=== PATIENT | male | born 1935 | race Caucasian/White ===

== ENCOUNTER → 2017-05-07 | Day surgery (SDC) | payer OTHER ==
[~2017-05-07] MED LIST: ALLOPURINOL 100 MG TAB PO SCH; ALLOPURINOL 200 MG PO SCH; ASPIRIN 81 MG CHEWABLE TAB PO SCH; CYANO/VITAMIN B12 1000 MCG/ML VIAL IM SCH; CYANOCOBALAMIN 1000 MCG IM SCH; LIDOCAINE 2% JELLY 20 ML (UROJECT) ONE; LISINOPRIL 10 MG PO SCH; LISINOPRIL 10 MG TAB PO SCH; LISINOPRIL 5 MG PO SCH; LISINOPRIL 5 MG TAB PO SCH; LR 1,000 ML IV ONE; METOPROLOL TARTRATE 5 MG/5 ML INJ ONE; METOPROLOL TARTRATE 50 MG TAB PO SCH; NON-FORMULARY NEW DRUG (Aspirin [Aspirin 81mg (*)] 81 MG) PO SCH; NON-FORMULARY NEW DRUG (Simvastatin [Zocor] 10 MG) PO SCH; PRAVASTATIN SODIUM 20 MG TAB PO SCH; ceFAZolin 2 GM/SWFI 2 GM/20 ML SYR IVP ONE
--- NOTE | 2017-05-07 07:44 | GHP ---
[f rep st] PREOP HISTORY AND PHYSICAL DATE OF ADMISSION: 05/07/2017 ADMISSION DIAGNOSIS: Benign prostatic hypertrophy with urinary retention. HISTORY OF PRESENT ILLNESS: This is an 81-year-old gentleman who was originally referred by Bethany serrano M.D., for evaluation of gross hematuria. On assessment and evaluation, he has had inflammat ory BPH, is admitted for transurethral resection of the prostate. He has had a TURP in the past, and at the present time, he has an AUA score total of 8 and a quality of life score of 4. REVIEW OF SYSTEMS: Negative cardiac, respiratory, GI, and endocrine. PHYSICAL EXAM: VITAL SIGNS: Stable. CHEST: Clear. HEART: Regular rate and rhythm. ABDOMEN: No rmal. No organomegaly, rebound, or guarding. LOWER EXTREMITIES: Normal. PLAN: At the present time, he is admitted for transurethral resection of the prostate. Options were discussed. Written and verbal consent were obtained. He is admitted for the above procedure. /[id number]/MODL
[2017-05-07 08:08] LABS: PLATELET COUNT 104 10^3/uL (150-400)
--- NOTE | 2017-05-07 08:09 | CPEKG ---
Heart Rate: 126 RR Interval: 476 QRSD Interval: 90 QT Interval: 308 QTC Interval: 446 QRS [place]: 20 T Wave [place]: -14 EKG Severity - ABNORMAL ECG - EKG Impression: ATRIAL FIBRILLATION WITH POOR RATE CONTROL EKG Impression: BORDERLINE T ABNORMALITIES, INFERIOR LEADS Electronically Signed By: Rodo Chen 07-May-2017 10:16:24
[2017-05-07 08:14] VITALS: TEMP 97.9; O2SAT 95
--- NOTE | 2017-05-07 08:16 | PDHPUP ---
History & Physical Update H&P update statement: This history and physical update is based on an assessment of the patient which was completed after admission or registration (within 24 hours), but prior to the surgery/procedure. H&P update: H&P reviewed & patient examined, no change in patient's condition since H&P completed
[2017-05-07] MEDS: METOPROLOL TARTRATE 5 MG/5 ML INJ IVP SCH ×3 (09:23→09:42)
--- NOTE | 2017-05-07 10:04 | PDANEPAE ---
ANE History of Present Illness Hematuria ANE Past Medical History - Cardiovascular History Hx Hypertension: Yes Hx Arrhythmias: No Hx Chest Pain: No Hx Coronary Artery / Peripheral Vascular Disease: Yes Hx CHF / Valvular Disease: No Hx Palpitations: No - Pulmonary History Hx COPD: No Hx Asthma/Reactive Airway Disease: No Hx Recent Upper Respiratory Infection: No Hx Oxygen in Use at Home: No Hx Sleep Apnea: No Sleep Apnea Screening Result - Last Documented: Positive - Neurologic History Hx Cerebrovascular Accident: No Hx Seizures: No Hx Dementia: No - Endocrine History Hx Diabetes: No - Renal History Hx Renal Disorders: No - Liver History Hx Hepatic Disorders: No - Neurological & Psychiatric Hx Hx Neurological and Psychiatric Disorders: No - Cancer History Hx Cancer: No - Congenital Disorder History Hx Congenital Disorders: No - GI History Hx Gastrointestinal Disorders: No - Other Health History Other Health History: none - Chronic Pain History Chronic Pain: No - Surgical History Prior Surgeries: right hand surgery. turp 1999. ankle right surgery ANE Review of Systems Review of Systems: - Exercise capacity METS (RN): 4 METS ANE Patient History - Allergies Allergies/Adverse Reactions: No Known Allergies Allergy (Verified 05/05/17 11:01) - Home Medications Home Medications: Allopurinol [Allopurinol 100 MG (*)] 200 mg PO DAILY18 05/05/17 [Last Taken Unknown] Aspirin [Aspirin 81mg (*)] 81 mg PO DAILY18 05/05/17 [Last Taken Unknown] Cyanocobalamin [Vitamin B12 1000MCG/ML (*)] 1,000 mcg IM Q30D 05/05/17 [Last Taken Unknown] Herbals/Supplements -Info Only 1 each PO DAILY 05/05/17 [Last Taken Unknown] Lisinopril [Zestril 5 mg (*)] 5 mg PO DAILY 05/05/17 [Last Taken Unknown] Lisinopril [Zestril 5 mg (*)] 10 mg PO DAILY18 05/05/17 [Last Taken Unknown] Simvastatin [Zocor] 10 mg PO DAILY18 05/05/17 [Last Taken Unknown] Tamsulosin HCl [Flomax 0.4 MG (*)] 0.4 mg PO DAILY18 05/05/17 [Last Taken Unknown] - NPO status NPO Since - Liquids (Date): 05/07/17 NPO Since - Liquids (Time): 06:00 NPO Since - Solids (Date): 05/06/17 NPO Since - Solids (Time): 21:00 - Smoking Hx Smoking Status: Former smoker - Family Anes Hx Family Hx Anesthesia Complications: none ANE Labs/Vital Signs - Labs Result Diagrams: 05/07/17 07:50 - Vital Signs Blood Pressure: 129/92 Heart Rate: 94 Respiratory Rate: 18 O2 Sat (%): 95 Height: 177.8 cm Weight: 90.718 kg ANE Anesthesia Plan Anesthesia Plan: general endotracheal anesthesia (Pt in a-fib with rate 160's. Cardiology consulted and recommended rate control and proceed, but logistics do not allow for procedure today. Will cancel and reschedule, possibly tomorrow. Cardiology ordering mediations.)
--- NOTE | 2017-05-07 10:39 | ECHO ---
[email or web address] [address] [address] Main: [phone] Fax: Transthoracic Echocardiogram Name: EDSON GARCIA MR#: [id number] Study Date: 05/07/2017 Study Time: 09:13 AM Date of : 1935 Age: 81 year(s) Height: 177.8 cm (70 in.) Weight: 77.11 kg (170 lb.) BSA: 1.95 m2 Gender: Male Examination: Echo Indication: pre-op; murmur Image Quality: Adequate Contrast: Requested by: Viktor Freeman BP: 131 mmHg/87 mmHg Heart Rate: Rhythm: Atrial fibrillation Indication: pre-op; murmur Procedure Staff Supervisor Pyrotechnic Loading: Joaquina Portillo [facility] Reading Physician: Suleiman Ocampo MD Requesting Provider: Conclusions: The patient was in atrial fibrillation with a rapid ventricular response at the time of the study . The left ventricle is normal in size with preserved LV systolic function. Visually the ejection fraction is estimated at 60-65% and calculated at 53% by Osborne's. The interventricular septum is "D" shaped during systole consistent with RV pressure overload. There are no regional wall motion abnormalities. The left atrium is severely dilated. The right atrium is tfwe-gl-jmpvxoqxea dilated. Right ventricular systolic function appears to be mildly reduced. There is mild aortic sclerosis with trivial aortic insufficiency. Mild mitral annular calcification is noted. There is nonspecific mitral leaflet thickening. There appears to be very mild prolapse of the posterior leaflet. This does, however, result in severe eccentric mitral regurgitation with an anteriorly directed jet. There is moderate to severe tricuspid regurgitation. The right ventricular systolic pressure is severely elevated at 71 mmHg. There is a small pericardial effusion. Measurements: Chambers Valvular Assessment AV/MV Valvular Assessment TV/PV Normal Normal Normal Name Value Range Name Value Range Name Value Range Ao Kelly (MM): 3.9 cm (2.2 cm-3.7 AV Vmax: 1.07 m/s (1 m/s-1.7 TR Vmax: 3.75 mm/s ( - ) cm) m/s) TR PGmax: 56 mmHg ( - ) IVSd (2D): 1.5 cm (0.6 cm-1.1 AV maxP mmHg ( - ) syst. PAP: 71 mmHg ( - ) cm) LVOT Vmax: 0.68 m/s (0.7 m/s-1.1 PV Vmax: 0.84 m/s (0.6 m/s-0.9 LVDd (2D): 4.7 cm (4.2 cm-5.9 m/s) m/s) cm) MV E Vmax: 1.06 m/s ( - ) PV PGmax: 3 mmHg ( - ) LVDs (2D): 3.2 cm (2.1 cm-4 cm) LVPWd (2D): 1.1 cm (0.6 cm-1 cm) LVEF (BP): 53 % (>=55 %) RVDd(2D): 4.0 cm (1.9 cm-3.8 cmmm) Patient: EDSON GARCIA Study Date: 05/07/2017 Page 1 of 2 09:13 AM Continued Measurements: Chambers Valvular Assessment AV/MV Valvular Assessment TV/PV Name Value Name Value Name Value LADs: 5.4 cm MR Vena Contracta: 0.8 cm CVP (est.): 15 mmHg LADs Lon.4 cm LA Area: 39.1 cm2 LA Volume: 140 ml LA Volume Index: 71.8 ml/m2 TAPSE: 1.3 cm RA Area: 23.0 cm2 Findings: Left Ventricle: Normal size left ventricle. Mild to moderate LVH. Low normal left ventricular systolic function. EF is 53 %. No regional wall motion abnormality. Unable to assess diastolic dysfunction. Flattened interventricular septum consistent with RV volume and/or pressure overload. Right Ventricle: Mildly dilated right ventricle. Mildly reduced RV function. Left Atrium: The left atrium is severely dilated. Right Atrium: The right atrium is moderately dilated. Mitral Valve: There is mild thickening of the mitral valve leaflets. No mitral stenosis is present. There is flow reversal in the pulmonary veins consistent with significant mitral regurgitation. Posterior mitral leaflet prolapse with severe anteriorly directed mitral regurgitation. Mild posterior mitral annular calcification. Aortic Valve: The aortic valve is tri-leaflet and functions normally. Aortic sclerosis is present. Trivial to mild aortic valve regurgitation. No aortic valve stenosis is present. Tricuspid Valve: The tricuspid valve is normal in appearance and function. Moderate to severe tricuspid valve regurgitation. Right ventricular systolic pressure measures 71mmHg. The pulmonary artery pressure is severely increased. Pulmonic Valve: Pulmonary valve not well visualized. Trivial pulmonic valve regurgitation. Aorta: Normal size aortic root measuring 3.9 cm. IVC: The IVC is dilated. Pericardium: Small pericardial effusion. (No Signature Object) Patient: EDSON GARCIA Study Date: 05/07/2017 Page 2 of 2 09:13 AM [id number]
--- NOTE | 2017-05-07 10:40 | GCON ---
[f rep st] CONSULTATION CARDIOLOGY CONSULTATION. DATE OF CONSULTATION: 05/07/2017 REQUESTING PHYSICIAN: Dr. Lane from Anesthesiology. INDICATION: Atrial fibrillation in a patient preop for planned prostate surgery. HISTORY OF PRESENT ILLNESS: The patient is 81 years old and typically receives his cardiovascular ca re in [place]. At the time of my visit with him, I had no available cardiac records. Per the patient , he has no history of structural, ischemic or arrhythmic heart disease. He is followed by Cardiolog y given his history of chest discomfort which led to a stress test back in the 80s. He was diagnosed ultimately only with hypertension and hyperlipidemia and has been managed as an outpatient since. Layton is last visit with his shank tapper was about a year ago. He states that he generally feels well. Layton luis has, however, experienced a decline in his exercise capacity. Previously, he had been able exercis e on his home treadmill up to 15-20 minutes a day. However, more recently, he has only been active, able to exercise for 5 or 10 minutes before he becomes exhausted. He has symptoms of dyspnea without chest discomfort and also has noted fatigue. There is no history of orthopnea or PND. He has never been told that he has had atrial fibrillation and has never been treated with systemic anticoagulatio n. He is here today for a planned TURP given his history of hematuria. On arrival here, he was hemo dynamically stable, however, was noted to be in rapid atrial fibrillation. His initial ECG done at 7 :29 this morning indicated atrial fibrillation with a resting heart rate of 129 beats per minute with no ischemic ST or T changes. When I saw him, he was resting comfortably. PAST MEDICAL HISTORY: Obtained per the patient. He states that he has history of hypertension, hype rlipidemia, and BPH. Additionally, has a history of gout and previous UTIs. PAST SURGICAL HISTORY: Significant for previous inguinal hernia repair. HOME MEDICATIONS: Include allopurinol, baby aspirin, calcium, B12, lisinopril 5 mg daily, simvastati n 10 mg daily and tamsulosin. ALLERGIES: None. FAMILY HISTORY: Negative for premature atherosclerosis. SOCIAL HISTORY: He is a previous smoker, although quit back in the 70s. He has 5 children. He is a . He drinks alcohol rarely. As stated above, he likes to exercise either by walking outside or walking on his treadmill, however, has experienced effort intolerance. REVIEW OF SYSTEMS: A full 10-point review of systems was performed and is otherwise negative. PHYSICAL EXAMINATION: VITAL SIGNS: His blood pressure is 129/92 with a palpable pulse of about 120 beats per minute. On telemetry, he has been in atrial fibrillation with heart rates between 110 and 170 beats per minute. He has been afebrile. His oxygen saturations are 95%. GENERAL: He is a healt hy elderly male in no acute distress. HEENT: Normocephalic, atraumatic. He has anicteric sclerae. Oropharynx unremarkable. Carotids 2+ bilaterally. He has no jugular venous distention. RESPIRATORY : He speaks in full sentences. He is resting comfortably. On auscultation, he has fine basilar rale s. CARDIAC: Precordial inspection unremarkable. His PMI is nondisplaced. On auscultation, he is t achycardic with an irregularly irregular rhythm. He has a 2/6 holosystolic murmur at the left sterna l border which radiates both down to the xiphoid process and over into the axilla. ABDOMEN: Soft an d nontender. There are normoactive bowel sounds. He has no masses or hepatosplenomegaly. EXTREMITI ES: Warm and dry and well perfused. He has no indication of edema. VASCULATURE: He has 2+ radial and dorsal pedal pulses. DATABASE: Electrocardiogram is as described above. A CBC was noted to be normal. IMPRESSION: Mr. Vail is 81 years old and presents now with what is presumably his first episode of atrial fibrillation. He does describe a several month history of effort intolerance and dyspnea on e xertion. His exam is consistent with severe mitral regurgitation. My suspicion is that he has prima ry functional valvular heart disease which may have led to underlying atrial fibrillation as a cause for his recent symptoms. He does not appear to be in overt congestive heart failure at the present t jasmin. His heart rates are poorly controlled. Presently, I think the best course of action would be t o take care of his prostate disease before we directly address his atrial arrhythmias and what is lik kwame significant underlying valvular heart disease. To address either of these conditions upfront wou ld require that we begin systemic anticoagulation, which, given his hematuria at the present time, is not an option. Therefore, I recommend that we try to rate control his heart rate with intravenous L opressor. If we can get this under control, I think he can go to the operating room. I would like h im to have an echocardiogram. I have also requested records from his previous shank tapper. Further recommendations will be made pending review of these studies and review of his previous records. /[id number]/MODL
[2017-05-07 11:12] VITALS: BP 108/72; PULSE 133
[2017-05-07 12:20] VITALS: RESP 19
== END | disposition home or self-care (01) ==
LOC: F1N 06:30 → UNDOADMIN 06:30 → FSGY 06:30 → EDSTATUS 08:30
PROVIDERS: ATTEND Specialist
DX: N40.1 Benign prostatic hyperplasia with lower urinary tract symptoms (principal); R35.1 Nocturia; R31.0 Gross hematuria; Z53.09 Procedure and treatment not carried out because of other contraindication; I48.91 Unspecified atrial fibrillation; I08.1 Rheumatic disorders of both mitral and tricuspid valves; I10 Essential (primary) hypertension; E78.5 Hyperlipidemia, unspecified; M10.9 Gout, unspecified; I25.10 Atherosclerotic heart disease of native coronary artery without angina pectoris; Z87.440 Personal history of urinary (tract) infections
CPT/HCPCS: J0690

== ENCOUNTER 2017-05-21 05:33 | Observation (INO) | payer OTHER ==
--- NOTE | 2017-05-20 15:13 | GHP ---
[f rep st] PREOP HISTORY AND PHYSICAL ADMISSION DIAGNOSES: BPH, urinary obstruction, gross hematuria. HISTORY OF PRESENT ILLNESS: This 81-year-old gentleman who presented from Bethany Guzman MD, for e valuation of hematuria, with bladder outlet obstruction and nocturia. He is admitted for a TURP. MEDICATIONS: On admission are allopurinol, aspirin, calcium, lisinopril, simvastatin, and tamsulosin . ALLERGIES: None. PAST MEDICAL HISTORY: Positive for gout, BPH, hematuria, heart disease, hypertension, and UTIs. He had a cystoscopy that noted he had a TUR defect with inflammatory regrowth causing the blood and the obstruction, and at the present time, he is admitted for TUR of that lesion. PHYSICAL EXAMINATION: VITAL SIGNS: Stable. CHEST: Clear. HEART: Regular rate and rhythm. ABDOM EN: Normal. No organomegaly, rebound or guarding. EXTREMITIES: Lower extremities are normal. ASSESSMENT/PLAN: He is admitted for the above procedure. /[id number]/MODL
[2017-05-21] MEDS ORDERED: LIDOCAINE 1% 2 ML INJ ID PRN (05:39)
[2017-05-21] MEDS ORDERED: LR 1,000 ML IV ONE ×2 (05:39→06:46)
--- NOTE | 2017-05-21 06:42 | PDANEPAE ---
ANE History of Present Illness 81 year old male for TURP. ANE Past Medical History - Cardiovascular History Hx Hypertension: Yes Hx Arrhythmias: Yes Hx Chest Pain: No Hx Coronary Artery / Peripheral Vascular Disease: Yes Hx CHF / Valvular Disease: No Hx Palpitations: No Cardiovascular History Comment: EKG showed Afib - Dr Ocampo at [facility] placed on Metoprolol. Patient also has his own virtual assistant for advertisers through [facility] - Dr. Lashay Ballard. He was recently started on Xarelto (started 05-14-17 and stopped it on 05-17-17) Also prescribed cardizem, but he has not yet started this medication. On arrival to Pre-op, patient in A.Fib with RVR with highest rate approx. 140bpm. This is not new. He has had A.Fib w/ RVR for some time. - Pulmonary History Hx COPD: No Hx Asthma/Reactive Airway Disease: No Hx Recent Upper Respiratory Infection: No Hx Oxygen in Use at Home: No Hx Sleep Apnea: No Sleep Apnea Screening Result - Last Documented: Positive - Neurologic History Hx Cerebrovascular Accident: No Hx Seizures: No Hx Dementia: No - Endocrine History Hx Diabetes: No Hypothyroid: No Hyperthyroid: No Obesity: no - Renal History Hx Renal Disorders: Yes Renal History Comment: enlarged prostate, nocturia x2-3 - Liver History Hx Hepatic Disorders: No - Neurological & Psychiatric Hx Hx Neurological and Psychiatric Disorders: No - Cancer History Hx Cancer: No - Congenital Disorder History Hx Congenital Disorders: No - GI History GERD: no Hx Gastrointestinal Disorders: No - Other Health History Other Health History: Can bruise more easily lately - Chronic Pain History Chronic Pain: No - Surgical History Prior Surgeries: right hand surgery. turp 1998. ankle right surgery. tonsillectomy ANE Review of Systems Review of systems is: negative Review of Systems: - Exercise capacity Exercise capacity: >=4 METS METS (RN): 4 METS ANE Patient History - Allergies Allergies/Adverse Reactions: No Known Allergies Allergy (Verified 05/05/17 11:01) - Home Medications Home medications: home medication list seen and reviewed Home Medications: Allopurinol [Allopurinol 100 MG (*)] 200 mg PO DAILY18 05/05/17 [Last Taken 18:00] Aspirin [Aspirin 81mg (*)] 81 mg PO DAILY18 05/05/17 [Last Taken 05/14/17] Cyanocobalamin [Vitamin B12 1000MCG/ML (*)] 1,000 mcg IM Q30D 05/05/17 [Last Taken 04/30/17] Herbals/Supplements -Info Only 1 each PO DAILY 05/05/17 [Last Taken 05/20/17 08: 00] Lisinopril [Zestril 5 mg (*)] 5 mg PO DAILY 05/05/17 [Last Taken 05/12/17] Lisinopril [Zestril 5 mg (*)] 10 mg PO DAILY18 05/05/17 [Last Taken Unknown] Simvastatin [Zocor] 10 mg PO DAILY18 05/05/17 [Last Taken 05/18/17] Tamsulosin HCl [Flomax 0.4 MG (*)] 0.4 mg PO DAILY18 05/05/17 [Last Taken ] Metoprolol Tartrate 05/12/17 [Last Taken Unknown] Cardizem 05/18/17 [Last Taken Unknown] Xarelto 05/18/17 [Last Taken 05/17/17 08:00] - NPO status NPO Status: no food or drink >8 hours NPO Since - Liquids (Date): 05/21/17 NPO Since - Liquids (Time): 21:00 NPO Since - Solids (Date): 05/20/17 NPO Since - Solids (Time): 19:00 - Anes Hx Anes Hx: no prior problems - Smoking Hx Smoking Status: Former smoker Marijuana use: No - Alcohol Use Alcohol Use: None - Family Anes Hx Family Anes Hx: neg - N/A Family Hx Anesthesia Complications: none ANE Labs/Vital Signs - Vital Signs Vital Signs: reviewed preoperatively; see RN documention for details Blood Pressure: 151/81 Heart Rate: 154 Respiratory Rate: 18 O2 Sat (%): 94 Height: 180.34 cm Weight: 90.718 kg ANE Physical Exam - Airway Neck exam: FROM Mallampati Score: Class 1 Mouth exam: dentures - Pulmonary Pulmonary: no respiratory distress - Cardiovascular Cardiovascular: no murmur, rub, or gallop, irregularly irregular, tachycardia - ASA Status ASA Status: III ANE Anesthesia Plan Anesthesia Plan: general endotracheal anesthesia Total IV Anesthesia: No
[2017-05-21] MEDS ORDERED: LIDOCAINE 2% JELLY 20 ML (UROJECT) ONE (07:03)
[2017-05-21] MEDS ORDERED: ceFAZolin 2 GM/SWFI 2 GM/20 ML SYR IVP ONE (07:06)
[2017-05-21] MEDS ORDERED: LIDOCAINE 2% 5 ML SDV ONE (07:13)
[2017-05-21] MEDS ORDERED: PROPOFOL 200 MG/20 ML VIAL ONE (07:13)
[2017-05-21] MEDS ORDERED: fentaNYL 100 MCG/2 ML INJ ONE (07:13)
[2017-05-21] MEDS ORDERED: ROCURONIUM 50 MG/5 ML VIAL ONE (07:13)
[2017-05-21] MEDS ORDERED: PHENYLEPHRINE HCL 100 MCG/ML SYR ONE (07:16)
[2017-05-21] MEDS ORDERED: OPIUM/BELLADONNA ALKALO SUPP PR PRN (08:31)
[2017-05-21] MEDS ORDERED: LR 500 ML IV PRN (08:31)
[2017-05-21] MEDS ORDERED: PHENYLEPHRINE HCL 100 MCG/ML SYR IVP PRN (08:31)
[2017-05-21] MEDS ORDERED: HYDROCODONE/APAP 5/325 TAB PO PRN (08:31)
[2017-05-21] MEDS ORDERED: NALOXONE HCL 0.4 MG/ML INJ IVP PRN (08:31)
[2017-05-21] MEDS ORDERED: fentaNYL 100 MCG/2 ML INJ IVP PRN (08:31)
[2017-05-21] MEDS ORDERED: ONDANSETRON 4 MG/2 ML VIAL IVP PRN ×2 (08:31→08:32)
[2017-05-21] MEDS ORDERED: LABETALOL HCL 5 MG/ML 20 ML MDV IVP PRN (08:31)
--- NOTE | 2017-05-21 08:31 | GOP ---
[f rep st] OPERATIVE REPORT DATE OF OPERATION: 05/21/2017 SURGEON: Viktor Freeman MD PREOPERATIVE DIAGNOSIS: Benign prostatic hypertrophy with hemorrhagic prostatitis. POSTOPERATIVE DIAGNOSIS: Benign prostatic hypertrophy with hemorrhagic prostatitis. PROCEDURE PERFORMED: Transurethral resection of the prostate. FINDINGS: SPECIMENS: Sent to pathology. ESTIMATED BLOOD LOSS: Minimal. DESCRIPTION OF PROCEDURE: After undergoing general anesthesia, prep and drape in normal sterile fash ion in the dorsal lithotomy position, the resectoscope was passed under direct vision into the bladde r. Bladder had no tumor, stones, foreign bodies, or diverticula. Ureteral orifices were in normal p osition. Began by taking down the left lateral lobe and left portion of the posterior lobe. Right lateral lob e and right portion of the posterior lobe resected. Hemostasis provided with electrocautery and a bu tton bipolar. At the end of the procedure, there was no bleeding. Ureteral orifices were preserved. Verumontanum preserved. External sphincter approximated at the midline symmetrically. Uro-Jet renetta shahbaz in the urethra. A 22 three-way catheter with a 60 cc balloon inflated, traction placed, irrigate d clear. He will be admitted for postoperative care. COMPLICATIONS: None. /[id number]/MODL
[2017-05-21] MEDS ORDERED: ACETAMINOPHEN 325 MG TAB PO PRN (08:32)
[2017-05-21] MEDS ORDERED: ZOLPIDEM TARTRATE 5 MG TAB PO PRN (08:32)
[2017-05-21] MEDS ORDERED: ONDANSETRON DISINTEGRATING 4 MG TAB PO PRN (08:32)
--- NOTE | 2017-05-21 08:37 | POSTOPPROG ---
Post Op Note Date of Operation: 05/21/17 Surgeon: Vitkor Freeman Anesthesia: GET(General Endotracheal) Pre-op Diagnosis: bph Procedure: turp Inf/Abcess present in the surg proc area at time of surgery?: No EBL: Minimal Drains: Other (sandoval) Specimen(s): sent--dictated
[2017-05-21] MEDS ORDERED: POTASSIUM Cl (KCl) 10 MEQ in D5W 1/2 NS 1,000 ML IV SCH (09:00)
[2017-05-21] MEDS ORDERED: NS 1,000 ML IV SCH (09:15)
[2017-05-21] MEDS ORDERED: NS 1,000 ML IV ONE (09:18)
[2017-05-21 09:48] LABS: PLATELET COUNT 128 10^3/uL (150-400)
[2017-05-21] MEDS ORDERED: DILTIAZEM 125 MG in D5W 125 ML IV SCH (12:15)
[2017-05-21] MEDS: DILTIAZEM CD 120 MG CAP PO SCH (12:34)
--- NOTE | 2017-05-21 17:04 | PDGENHP ---
History and Physical - Chief Complaint Acute fatigue - History of Present Illness Primary care provider: Dr. Martínez Primary stave jointer: Dr. Lashay Ballard HPI: 81-year-old male presenting with acute fatigue characterized as daytime somnolence with associated nocturia, shortness of breath and hematuria. The patient reports that he is experienced hematuria for the past several months which is constant during his urinary stream and it is associated with increased nocturia. He was seen as an outpatient by Dr. Freeman, and scheduled for a TURP. In addition, the patient reports that his shortness of breath was gradual onset approximately 1 month prior and would be exacerbated with ambulation. He otherwise denies any palpitations or chest pain. He denies any infectious symptoms. Perioperatively, the patient's systolic blood pressure went down to 60, and postoperatively his heart rate went up to 140. After receiving lactated Ringer's, his systolic blood pressure increased to 150, but his heart rate remained fast and telemetry demonstrated an atrial fibrillation rhythm. History Information - Allergies/Home Medication List Allergies/Adverse Reactions: No Known Allergies Allergy (Verified 05/05/17 11:01) Home Medications: Allopurinol [Allopurinol 100 MG (*)] 200 mg PO DAILY18 05/05/17 [Last Taken 18:00] Aspirin [Aspirin 81mg (*)] 81 mg PO DAILY18 05/05/17 [Last Taken 05/14/17] Cyanocobalamin [Vitamin B12 1000MCG/ML (*)] 1,000 mcg IM Q30D 05/05/17 [Last Taken 04/30/17] Herbals/Supplements -Info Only 1 each PO DAILY 05/05/17 [Last Taken 05/20/17 08: 00] Lisinopril [Zestril 5 mg (*)] 5 mg PO DAILY 05/05/17 [Last Taken 05/12/17] Lisinopril [Zestril 5 mg (*)] 10 mg PO DAILY18 05/05/17 [Last Taken Unknown] Simvastatin [Zocor] 10 mg PO DAILY18 05/05/17 [Last Taken 05/18/17] Tamsulosin HCl [Flomax 0.4 MG (*)] 0.4 mg PO DAILY18 05/05/17 [Last Taken ] Metoprolol Tartrate [Lopressor 50 mg (*)] 50 mg PO BID 05/12/17 [Last Taken Unknown] Diltiazem HCl [Cartia Xt] 120 mg PO DAILY 05/18/17 [Last Taken Unknown] Rivaroxaban [Xarelto 10mg (*)] 20 mg PO DAILY 05/18/17 [Last Taken 05/17/17] I have personally reviewed and updated: family history, medical history, social history, surgical history - Past Medical History atrial fibrillation (Reportedly paroxysmal for approximately 1 year with outpatient stress test obtained in July of 2016, reportedly normal) Additional medical history: BPH. Gout - Surgical History Additional surgical history: TURP 10 years ago - Family History Additional family history: No family history of venous thromboembolism, father with myocardial infarction and CVA in his 80s - Social History Smoking Status: Former smoker Alcohol Use: None Drug Use: None Additional social history: Patient is independent in his ADLs, lives alone, has multiple stairs in his home Review of Systems Review of Systems: ROS: 10pt was reviewed & negative except for what was stated in HPI & below Constitutional: Reports: other (Fatigue) Respiratory: Reports: shortness of breath Genitourinary: Reports: hematuria, other (Nocturia) Physical Exam Physical Exam: Temp Pulse Resp BP Pulse Ox 36.8 C 152 H 18 132/89 H 90 L 05/21/17 11:56 05/21/17 12:44 05/21/17 11:56 05/21/17 11:56 05/21/17 11:56 O2 (L/minute) 2 Constitutional: no apparent distress, appears nourished, not in pain, obese Eyes: PERRL, anicteric sclera, EOMI Ears, Nose, Mouth, Throat: moist mucous membranes, hearing normal, ears appear normal, no oral mucosal ulcers Cardiovascular: systolic murmur (3/6 systolic at the apex and 2/6 systolic at the base), irregularly irregular, tachycardia, No edema Respiratory: no respiratory distress, clear to auscultation, inspiratory crackles (Bilateral bases) Gastrointestinal: normoactive bowel sounds, soft, non-tender abdomen, no palpable masses, No distension Genitourinary: sandoval in urethra Neurologic: AAOx3, sensation intact bilaterally, No weakness (Motor strength 5/ 5 bilateral lower extremities) Psychiatric: interacting appropriately, not anxious, not encephalopathic, thought process linear Lab Data & Imaging Review 05/21/17 09:30 05/21/17 09:30 WBC 8.57 10^3/uL (3.80-9.50) 05/21/17 09:30 RBC 4.54 10^6/uL (4.40-6.38) 05/21/17 09:30 Hgb 14.2 g/dL (13.7-17.5) 05/21/17 09: Hct 43.1 % (40.0-51.0) 05/21/17 09:30 MCV 94.9 fL (81.5-99.8) 05/21/17 09:30 MCH 31.3 pg (27.9-34.1) 05/21/17 09: MCHC 32.9 g/dL (32.4-36.7) 05/21/17 09:30 RDW 14.2 % (11.5-15.2) 05/21/17: Plt Count 128 10^3/uL (150-400) L 05/21/17:30 MPV 10.9 fL (8.7-11.7) 05/21/17 09:30 Neut % (Auto) 88.2 % (39.3-74.2) H 05/21/17 09:30 Lymph % (Auto) 5.8 % (15.0-45.0) L 05/21/17 09:30 [place] % (Auto) 4.7 % (4.5-13.0) 05/21/17 09:30 Eos % (Auto) 0.6 % (0.6-7.6) 05/21/17 09:30 Baso % (Auto) 0.2 % (0.3-1.7) L 05/21/17 09:30 Nucleat RBC Rel Count 0.0 % (0.0-0.2) 05/21/17 09:30 Absolute Neuts (auto) 7.56 10^3/uL (1.70-6.50) H 05/21/17 09:30 Absolute Lymphs (auto) 0.50 10^3/uL (1.00-3.00) L 05/21/17 09:30 Absolute Monos (auto) 0.40 10^3/uL (0.30-0.80) 05/21/17 09:30 Absolute Eos (auto) 0.05 10^3/uL (0.03-0.40) 05/21/17 09:30 Absolute Basos (auto) 0.02 10^3/uL (0.02-0.10) 05/21/17 09:30 Absolute Nucleated RBC 0.00 10^3/uL (0-0.01) 05/21/17 09:30 Immature Gran % 0.5 % (0.0-1.1) 05/21/17 09:30 Immature Gran # 0.04 10^3/uL (0.00-0.10) 05/21/17 09:30 VBG Lactic Acid 1.4 mmol/L (0.7-2.1) 05/21/17 09:30 Sodium 143 mEq/L (135-145) 05/21/17 09:30 Potassium 5.2 mEq/L (3.5-5.2) 05/21/17 09:30 Chloride 108 mEq/L (97-110) 05/21/17 09:30 Carbon Dioxide 25 mEq/l (22-31) 05/21/17 09:30 Anion Gap 10 mEq/L (8-16) 05/21/17 09:30 BUN 23 mg/dL (7-23) 05/21/17 09:30 Creatinine 1.2 mg/dL (0.7-1.3) 05/21/17 09:30 Estimated GFR 58 05/21/17 09:30 Glucose 109 mg/dL (70-100) H 05/21/17 09:30 Calcium 8.1 mg/dL (8.5-10.4) L 05/21/17 09:30 Troponin I < 0.012 ng/mL (0.000-0.034) 05/21/17 16:07 Visualized and Interpreted imaging results: Yes Interpretation: Telemetry demonstrating atrial fibrillation with rapid ventricular rate Assessment & Plan Assessment: 81-year-old male presenting with BPH requiring TURP, complicated by paroxysmal atrial fibrillation with acute rapid ventricular response and acute hypotension Plan: 1. Paroxysmal atrial fibrillation. Acute rapid ventricular response, new problem this provider, further workup indicated. Asymptomatic, most likely provoked by hypotension and surgery, likely cause of patient's exertional shortness of breath leading into this hospitalization -patient's nikolas blocking was most likely suboptimally managed prior to his surgery, with him being chronically on a beta-yris and recently initiated on a calcium channel yris by his primary stave jointer after he had preoperative assessment, but the patient did not receive the calcium channel yris secondary to a delay in medications from [facility] -check cardiac enzymes now and in 6 hr to rule out perioperative silent myocardial infarction -monitor on telemetry -stabilize hypotension with IV fluids and if systolic blood pressure greater than 100, initiate diltiazem drip to control rate -administer oral diltiazem 120 which was his intended home dosage, and gauge effect with diltiazem drip -hold home dosage of metoprolol given that the patient does not have a permanent pacemaker and I am somewhat hesitant to dual nikolas block him and would favor that the patient be on single agent nikolas blocking therapy, up titrated for affect -reviewed outside records including 05/07/2017 echocardiogram demonstrating ejection fraction 53%, mild reduction in right ventricular function with evidence of right ventricular overload, severe mitral regurgitation, moderate to severe tricuspid regurgitation, elevated RVSP, no focal wall motion abnormalities, indicating that the patient's atrial fibrillation is most likely valvular mediated which will be discussed below -continue holding Xarelto reinitiate once postoperative bleeding completely resolved 2. Hypotension. Acute, new problem this provider, further workup indicated. Systolic blood pressure is low 60 perioperatively, responded to lactated Ringer' s, systolic blood pressure 79 during my evaluation the patient comma responding to IV fluids and given 1 additional L of normal saline with good response -checked venous lactic acid level -preoperative hemoglobin 13.9, check hemoglobin level at this time 3. BPH. Postop day 0 status post TURP, discussed with Dr. Viktor Freeman, he will continue to consult on the patient and will assess the patient for Sandoval catheter removal tomorrow 4. Severe mitral regurgitation. Present on most recent echocardiogram, unclear whether patient's primary stave jointer has been following this issue although it is likely chronic and has contributed to the patient's paroxysmal atrial fibrillation -at discharge, will recommend to the patient that he follow up closely with his primary stave jointer for outpatient reassessment, consideration of cardiothoracic surgery outpatient referral for valve replacement as well as possible Maze procedure Diet. Regular Prophylaxis. High risk patient,: Currently holding pharm given recent surgery , SCDs Code. Full per patient Disposition. Anticipated discharge is 05/22, pending stabilization of conditions outlined above.
--- NOTE | 2017-05-21 17:47 | POSTANESTH ---
Post Anesthetic Evaluation Cardiovascular Status: Similar to Pre-Op Cond (Patient with A.Fib w/ RVR. This is NOT a new problem. Documented on ECG obtained by PST. Sent to Cardiology for further evaluation prior to surgery. One director of emergency nursing reportedly prescribed metoprolol, but patient has no knowledge of ever taking this medication. Patient then saw his own director of emergency nursing in the [facility] system. Patient was prescribed cardizem and xarelto. Patient started the Xarelto, but never started the cardizem as the mail order delivery just arrived at his home yesterday. Patient did have hypotension under general anesthesia that required continuous treatment by anesthesiologist. Said hypotension self corrected on emergence from general anesthesia.) Respiratory Status: Normal, Stable Level of Consciousness/Mental Status: Can Participate in Eval Pain Control: Adequate, Prn Tx Ordered Nausea/Vomiting Control: Adequate, Prn Tx Ordered Complications Possibly Related to Anesthesia: None Noted
[2017-05-21] MEDS ORDERED: DILTIAZEM HCL/D5W 125 ML IV SCH (22:00)
[2017-05-22 04:16] LABS: PLATELET COUNT 128 10^3/uL (150-400)
--- NOTE | 2017-05-22 07:54 | SOAPPROG ---
[facility] Progress Note Assessment/Plan: Assessment: BPH loc w urin obs/LUTS Acute POD 1, remove sandoval and consider DC Atrial fibrillation Acute care per hospitalist and will have pt follow up with outpt cardiology and PCP Plan: as noted 05/22/17 07:53 Subjective: ok Objective: Vital Signs Temp Pulse Resp BP Pulse Ox 36.4 C 107 H 20 119/73 92 05/22/17 07:17 05/22/17 07:17 05/22/17 07:17 05/22/17 07:17 05/22/17 07:17 Laboratory Results 05/22/17 03:55 05/22/17 03:55 05/21/17 05/22/17 05/23/17 05:59 05:59 05:59 Intake Total 2550 155 Output Total 1999 1600 Balance 550 -1445 Physical Exam - Physical Exam General Appearance: alert Male Genitalia: normal genitalia Neuro/Psych: oriented x 3 ICD10 Worksheet Patient Problems: Problems Problem Status Onset Atrial fibrillation Acute BPH loc w urin obs/LUTS Acute - ICD10 Problem Qualifiers (1) BPH loc w urin obs/LUTS (2) Atrial fibrillation
[2017-05-22] MEDS ORDERED: METOPROLOL TARTRATE 50 MG TAB PO SCH (09:15)
[2017-05-22] MEDS: DILTIAZEM CD 120 MG CAP PO SCH (09:41)
--- NOTE | 2017-05-22 10:38 | ASMTCASEMG ---
Living Arrangements What is your living Answers: Alone arrangement? Who do you live with? Type Of Residence What kind of residence do Answers: House you live in? Discharge Plan Comments Coordination Status Comments Notes: Pt is a 81 y/o man admitted for BPH, urinary obstruction and gross hematuria. CM spoke w/ Chadd, RN regarding d/c POC. CM met w/ pt and friend for dispo planning. Pt does not think he needs any services at time of d/c. Pt reports that he has supportive friends that check in on him daily. No therapies ordered at this time. CM available for changes. Plan: Independent Date Signed: 05/22/2017 10:37 AM Electronically Signed By:SHELLEY Logan
[2017-05-22 11:40] VITALS: BP 100/69; PULSE 81; RESP 28; TEMP 97.4; O2SAT 95
--- NOTE | 2017-05-22 15:20 | PDDCSUM ---
Discharge Summary Discharge Summary: DISCHARGE SUMMARY FOLLOW-UP ITEMS: 1. Reassess heart rate and rhythm next week a cardiology follow-up appointment 2. Restart Xarelto on 05/25 sign 3. Recommend outpatient cardiothoracic surgery evaluation of the mitral valve, can also consider Maze procedure DATE OF ADMISSION: 05/21/2017 DATE OF DISCHARGE: 05/22/2017 DISCHARGE DIAGNOSES: 1. Paroxysmal atrial fibrillation with acute rapid ventricular response 2. Acute hypotension 3. BPH 4. Severe mitral regurgitation CONSULTATIONS: Urology PROCEDURES / IMAGING: TURP on 05/21 with successful removal of Downey catheter and subsequent urination CHIEF COMPLAINT: Elective TURP, complicated by AFib RVR with hypotension SUBJECTIVE: Patient is feeling well at time of discharge, he is able to urinate PHYSICAL EXAM ON DISCHARGE: Systolic blood pressure is 108, heart rate 80-90, afebrile overnight, satting on room air, alert awake oriented x3, lungs are clear to auscultation bilaterally, heart rhythm is irregularly irregular, no lower extremity edema, no abdominal tenderness, 3/6 systolic murmur at the apex LABS ON DISCHARGE: Creatinine 1.2, potassium 5.1, hemoglobin 13.2 HOSPITAL COURSE BY PROBLEM: The patient presented for acute TURP by Dr. Viktor Freeman on 05/21, and this procedure was performed successfully, complicated by paroxysmal atrial fibrillation with acute rapid ventricular response and acute hypotension postprocedurally. The patient has known paroxysmal atrial fibrillation and prior to his procedure, his experimental psychologist had recommended initiating a calcium channel yris in addition to his home dosage of metoprolol, in order to obtain rate control. The patient likely has valvular atrial fibrillation the setting of severe mitral regurgitation, and I would recommend outpatient cardiothoracic surgery consultation to further address this valve issue. The patient had not initiated that medication because he uses [facility] and they did not send it to him expeditiously. Consequently, postprocedurally, the patient's heart rate was 140, and he required an IV diltiazem drip for stabilization. His systolic blood pressure was also low postprocedure early, most likely secondary to anesthesia, and he responded immediately to IV fluids. The patient received 1 dosage of oral diltiazem with the diltiazem drip, and then the decision was made to up titrate his single agent beta-yris and wean him off of the diltiazem drip. The patient was weaned off successfully, and is safe for discharge home on metoprolol tartrate 75 mg twice daily. I recommend that he continue this dosage and follow up with his experimental psychologist next week to determine whether he requires further up titration or whether his rate is well controlled on this dosage. The patient had his Xarelto held pre procedurally and we continued to hold it after his procedure secondary to some ongoing hematuria. I recommended that he re-initiated on 05/25, to ensure healing and avoid obstructive blood clot in his urinary system. His other home medications were otherwise continued. I did recommend that he remain off of the diltiazem, as I am somewhat uncomfortable prescribing dual nikolas blocking therapy with the patient may be able to be successfully managed on single agent therapy. DISCHARGE MEDICATIONS: Please see official discharge medication reconciliation sheet in chart , continue home medications with the discontinuation of diltiazem, up titration of metoprolol tartrate 75 mg twice daily, temporary hold of Xarelto until 05/25. DISCHARGE INSTRUCTIONS: Please follow up with primary experimental psychologist next week, Dr. Viktor Freeman as scheduled.
== END 2017-05-22 16:26 | disposition home or self-care (01) ==
LOC: FSGY 05:33 → F1N 08:31 → F2W 11:15
PROVIDERS: ADMIT Specialist; ATTEND Internal Medicine
PROC: 0VB08ZZ Excision of Prostate, Via Natural or Artificial Opening Endoscopic (ICD-10-PCS; principal; 2017-05-21 07:15)
DX: I48.0 Paroxysmal atrial fibrillation (principal); N40.1 Benign prostatic hyperplasia with lower urinary tract symptoms; N13.8 Other obstructive and reflux uropathy; R35.1 Nocturia; N41.9 Inflammatory disease of prostate, unspecified; I34.0 Nonrheumatic mitral (valve) insufficiency; I95.9 Hypotension, unspecified; I10 Essential (primary) hypertension
CPT/HCPCS: 52601; 88305; J0690; J2370; J2704; J3010